=== PATIENT | male | born 1980 | race African-American/Black ===

== ENCOUNTER 2023-09-24 04:53 | Emergency (ER) | payer MEDICAID ==
[~2023-09-24] VITALS: Ht 177.8 cm; Wt 70.0 kg
[2023-09-24 05:04] VITALS: TEMP 98.2; O2SAT 97
[2023-09-24] MEDS: SODIUM CHLORIDE 0.9% 1,000 ML IV ONE (06:03)
[2023-09-24 06:11] LABS: BASOPHILS % 0.2 % (0.0-2.0); DIFFERENTIAL COMMENT 0; EOSINOPHILS % 0.3 % (0.0-5.0); HEMATOCRIT. 26.4 % (42.0-52.0); HEMOGLOBIN. 7.7 g/dL (14.0-18.0); LYMPHOCYTES % 13.8 % (20.0-50.0); MEAN CORPUSCULAR HEMOGLOBIN 29.8 pg (28.0-32.0); MEAN CORPUSCULAR HGB CONC 29.3 g/dL (31.0-37.0); MEAN CORPUSCULAR VOLUME 101.7 fL (80.0-94.0); MEAN PLATELET VOLUME 10.8 fl (7.4-10.4); MONOCYTES % 11.2 % (2.0-8.0); NEUTROPHILS % 74.5 % (40.0-76.0); PLATELET 202 x1000/uL (130-400); RED CELL DISTRIBUTION WIDTH 18.1 % (11.6-14.6)
[2023-09-24 06:31] LABS: ACETAMINOPHEN < 2 ug/mL (10-30); ALANINE AMINOTRANSFERASE 35 IU/L (10-49); ALBUMIN 2.7 g/dL (3.2-4.8); AMMONIA < 10 uMol/L (<32); ASPARTATE AMINOTRANSFERASE 119 IU/L (<34); BILIRUBIN TOTAL 1.6 mg/dL (0.1-1.0); CALCIUM 7.7 mg/dL (8.7-10.4); CARBON DIOXIDE 18 mEq/L (21-32); CHLORIDE 101 mEq/L (98-107); CREATININE 0.7 mg/dL (0.6-1.3); ETHANOL BLOOD < 10 mg/dL (<10); GLUCOSE 108 mg/dL (70-105); POTASSIUM 3.1 mEq/L (3.5-5.1); PROTEIN TOTAL 8.3 g/dL (6.0-8.3); SODIUM 132 mEq/L (136-145)
[2023-09-24 06:43] LABS: UREA NITROGEN BLOOD < 5 mg/dL (9-23)
[2023-09-24] MEDS: SODIUM CHLORIDE 0.9% 1000ML BAG (SEPSIS BOLUS) IV ONE (07:15)
[2023-09-24 08:03] VITALS: BP 135/88; PULSE 111; RESP 22
[2023-09-24 08:15] LABS: LACTIC ACID 3.5 mmol/L (0.4-2.0)
[2023-09-24] MEDS: PIPERACILLIN/TAZO 3.375G/50ML 50 ML IV ONE (09:18)
[2023-09-24] MEDS: VANCOMYCIN 1G PREMIX 200 ML IV ONE (09:18)
[2023-09-24 10:12] LABS: IRON 18 ug/dL (65-175); T4 FREE 1.35 ng/dL (0.89-1.76); THYROID STIMULATING HORMONE 5.69 uIU/mL (0.55-4.78); TOTAL IRON BINDING CAPACITY 212 ug/dl (250-425)
[2023-09-24 10:16] LABS: FOLIC ACID (FOLATE) SERUM 17.17 ng/mL (>5.38); VITAMIN B12 SERUM 1626 pg/mL (211-911)
[2023-09-28] MEDS ORDERED: DIPH-954 PO (16:09)
== END 2023-09-24 12:10 | disposition left against medical advice (07) ==
LOC: ER 04:53 → CANBEDREQ 12:07 → ER 12:10
DX: A41.9 Sepsis, unspecified organism (principal); R65.20 Severe sepsis without septic shock; F17.200 Nicotine dependence, unspecified, uncomplicated
CPT/HCPCS: 80053; 80307; 80329; 80320; 82140; 82607; 82746; 83036; 84439; 83540; 83550; 83605; 84443; 85025; 87040; 36415; 84145; 71045; 93005; 96368; 96361; 96365; 96366; 99291; J2543; J3370; J7030; Z7610 ×3; G0480